=== PATIENT | male | born 2000 | race Caucasian/White ===

== ENCOUNTER 2023-05-30 08:58 | Emergency (ER) | payer OTHER, SELFPAY ==
[2023-05-30 09:01] VITALS: BP 132/75; PULSE 77; RESP 18; TEMP 36.9; O2SAT 98
[2023-05-30 09:50] VITALS: BP 147/84; PULSE 79; RESP 17; O2SAT 97
[2023-05-30 09:51] VITALS: BP 147/87; PULSE 91; RESP 16; TEMP 36.7; O2SAT 100
[2023-05-30 10:01] VITALS: BP 130/84; PULSE 73; RESP 13; O2SAT 99
--- NOTE | 2023-05-30 10:23 | ED.GENADULT ---
HPI - General Adult General Chief complaint: Recheck/Abnormal Lab/Rx Stated complaint: Seritonin sickness, vomitting Time Seen by Provider: 05/30/23 10:05 Source: patient Mode of arrival: ambulatory Limitations: no limitations History of Present Illness HPI narrative: This is a 22-year-old male who presents to the ED with chief complaint of nausea and vomiting x2 days. Reports that he recently restarted as Prozac and is concern for possible serotonin syndrome after looking up the symptoms online. Reports that he was prescribed Prozac few months ago in taking it without any issues, however after he moved back home recently he forgets to take them for couple weeks and restarted 2 days ago. Reports several episodes of diarrhea and a couple episodes of vomiting since yesterday. Denies abdominal pain, chest pain, shortness of breath, urinary problems or GI bleeding symptoms. Related Data Allergies Allergy/AdvReac Type Severity Reaction Status Date / Time amoxicillin Allergy Anaphylaxis Verified 05/30/23 08:59 Review of Systems Review of Systems: All systems as dictated in HPI Exam Narrative: GENERAL: Well-appearing, well-nourished, and in no acute distress. No diaphoresis. Drinking Sprite HEAD: Normocephalic, atraumatic. EYES: PERRLA and EOMI. ENT: Nares clear, no rhinorrhea or epistaxis. Mucous membranes moist. Oropharynx without tonsillar hypertrophy exudate or other lesions. NECK: Supple. No adenopathy or masses. CHEST: No respiratory distress. Clear to auscultation. No wheezes rales or rhonchi. HEART: Regular rate and rhythm. No murmur heard. Normal peripheral pulses. ABDOMEN: Soft, nontender, nondistended, normal active bowel sounds. MSK: Normal range of motion. No edema. SKIN: Warm, dry, no rash. NEURO: Alert and oriented x3. No focal deficits. PSYCH: Normal mood and affect. Pleasant and conversational Course Vital Signs Vital signs: Vital Signs Temperature 98.5 F 05/30/23 09:01 Pulse Rate 77 05/30/23 09:01 Respiratory Rate 18 05/30/23 09:01 Blood Pressure 132/75 05/30/23 09:01 Pulse Oximetry 98 05/30/23 09:01 Oxygen Delivery Room Air 05/30/23 09:01 Temperature 97.3 F L 05/30/23 10:33 Pulse Rate 76 05/30/23 11:16 Respiratory Rate 16 05/30/23 11:16 Blood Pressure 125/83 05/30/23 11:16 Pulse Oximetry 98 05/30/23 11:16 Oxygen Delivery Room Air 05/30/23 09:51 Medical Decision Making MDM Narrative Medical decision making narrative: This is a 22-year-old male who presents to the ED with chief complaint of nausea. He took his Prozac prescription and is seeking evaluation for possible serotonin syndrome. Vitals are normal. Exam is benign. He is drinking Sprite on the exam and clearly tolerating p.o. lab work is unremarkable. Symptoms consistent gastroenteritis. Pt will be discharged in stable condition. Return precautions given and supportive measures discussed. Pt is understanding and agreeable with plan for discharge and follow-up with PCP. Vital Signs Vital Signs: Vital Signs Temperature 98.5 F 05/30/23 09:01 Pulse Rate 77 05/30/23 09:01 Respiratory Rate 18 05/30/23 09:01 Blood Pressure 132/75 05/30/23 09:01 Pulse Oximetry 98 05/30/23 09:01 Oxygen Delivery Room Air 05/30/23 09:01 Temperature 97.3 F L 05/30/23 10:33 Pulse Rate 76 05/30/23 11:16 Respiratory Rate 16 05/30/23 11:16 Blood Pressure 125/83 05/30/23 11:16 Pulse Oximetry 98 05/30/23 11:16 Oxygen Delivery Room Air 05/30/23 09:51 Lab Data 05/30/23 10:32 05/30/23 10:32 Labs: Lab Results 05/30/23 05/30/23 05/30/23 Range/Units 09:49 10:26 10:32 WBC 10.2 H (4.5-10.0) K/mm3 RBC 5.21 (4.6-6.20) M/mm3 Hgb 15.6 (14.0-18.0) g/dL Hct 47.0 (42.0-52.0) % MCV 90.2 (80-100) fl MCH 29.9 (26-34) pg MCHC 33.2 (32-36) g/dl RDW 12.0 (11.5-14.5) % Plt Count 277 (150-375)
[2023-05-30 10:29] LABS: Influenza A QL RT-PCR Negative (Negative); Influenza B QL RT-PCR Negative (Negative); SARS-CoV-2 RNA PCR Negative (Negative)
[2023-05-30 10:33] VITALS: BP 135/80; PULSE 74; RESP 16; TEMP 36.3; O2SAT 100
[2023-05-30] MEDS: ONDANSETRON HCL ODT 4 MG TABLET PO (10:40)
[2023-05-30 10:42] LABS: Basophils Percent Auto 0.4 % (0.2-1.2); Eosinophils Absolute Auto 0.2 K/mm3 (0-0.3); Eosinophils Percent Auto 2.4 % (0-4.4); Hemoglobin 15.6 g/dL (14.0-18.0); Immature Granulocyte Absolute 0.04 K/mm3 (0.00-0.031); Immature Granulocyte Percent A 0.4 % (0-0.5); Lymphocytes Absolute Auto 0.81 K/mm3 (0.9-3.2); Lymphocytes Percent Auto 7.9 % (18.3-44.2); Mean Corpuscular HGB Conc 33.2 g/dl (32-36); Mean Corpuscular Hemoglobin 29.9 pg (26-34); Mean Corpuscular Volume 90.2 fl (80-100); Mean Platelet Volume 9.8 fl (7.4-10.4); Monocytes Absolute Auto 0.7 K/mm3 (0.1-0.6); Monocytes Percent Auto 6.4 % (2.6-8.5); Neutrophils Absolute Auto 8.4 K/mm3 (1.3-6.7); Neutrophils Percent Auto 82.5 % (45.5-73.1); Platelet Count Result 277 k/mm3 (150-375); Red Blood Count 5.21 M/mm3 (4.6-6.20); White Blood Count 10.2 K/mm3 (4.5-10.0)
[2023-05-30 10:46] LABS: Appearance Urine Turbid (Clear); Bacteria Urine None Seen /hpf; Bilirubin Urine Negative (Negative); Blood Urine Negative (Negative); Color Urine Yellow (Yellow); Glucose Urine UA Negative (Negative); Ketones Urine Negative (Negative); Leukocyte Esterase Ur Negative LEU/UL (Negative); Nitrate Urine Negative (Negative); Non Pathogenic Casts 0-2; Protein Urine Trace mg/dL (Negative); RBC Urine 0-2 /hpf (0-2); Specific Grav Ur 1.023 (1.001-1.035); Squamous Epithelial Cell Urine None seen /hpf (Few); WBC Urine 0-5 /hpf; pH Urine >=9.0 (5.0-9.0)
[2023-05-30 10:55] LABS: Add Urine Microscopic? YES
[2023-05-30 11:02] LABS: Alanine Aminotransferase 123 U/L (6-50); Albumin Level 4.7 g/dL (3.5-5.1); Alkaline Phosphatase 74 U/L (38-126); Anion Gap 8 mmol/L (8-16); Aspartate Amino Transferase 51 U/L (17-59); Blood Urea Nitrogen 10 mg/dL (9-20); Calcium 9.5 mg/dL (8.4-10.2); Carbon Dioxide 29 mmol/L (22-30); Chloride 102 mmol/L (98-107); Estimated CRCL calculation 104 ml/min; Estimated Glomerular Filt Rate > 60; Glucose 95 mg/dL (65-110); Potassium 4.2 mmol/L (3.4-5.0); Sodium 139 mmol/L (137-145)
[2023-05-30 11:16] VITALS: BP 125/83; PULSE 76; RESP 16; O2SAT 98
== END 2023-05-30 11:16 | disposition home or self-care (01) ==
PROVIDERS: Emergency Medicine; Emergency Provider Physician Assistant
DX: R11.2 Nausea with vomiting, unspecified (principal); Z20.822 Contact with and (suspected) exposure to COVID-19
CPT/HCPCS: 36415; 80053; 81001; 85025; 87636; 99283; A9270

== ENCOUNTER 2024-02-01 15:58 | Outpatient (CLI) | payer OTHER, SELFPAY ==
[2024-02-01 16:24] LABS: Hemoglobin 16.4 g/dL (14.0-18.0); Mean Corpuscular HGB Conc 34.2 g/dl (32-36); Mean Corpuscular Hemoglobin 30.6 pg (26-34); Mean Corpuscular Volume 89.6 fl (80-100); Mean Platelet Volume 10.1 fl (7.4-10.4); Platelet Count Result 340 k/mm3 (150-375); Red Blood Count 5.36 M/mm3 (4.6-6.20); Red Cell Distribution Width 11.7 % (11.5-14.5); White Blood Count 7.1 K/mm3 (4.5-10.0)
[2024-02-01 16:51] LABS: Erythrocyte Sedimentation Rate 1 mm/hr (0-20)
[2024-02-01 17:04] LABS: Alanine Aminotransferase 23 U/L (6-50); Alkaline Phosphatase 63 U/L (38-126); Anion Gap 11 mmol/L (4-12); Aspartate Amino Transferase 28 U/L (17-59); Bilirubin,Total 0.6 mg/dL (0.2-1.3); Blood Urea Nitrogen 11 mg/dL (9-20); CRP < 0.5 mg/dL (<1.0); Calcium 9.2 mg/dL (8.4-10.2); Carbon Dioxide 25 mmol/L (22-30); Chloride 97 mmol/L (98-107); Estimated Glomerular Filt Rate > 60; Glucose 91 mg/dL (65-110); Potassium 3.7 mmol/L (3.4-5.0); Sodium 133 mmol/L (137-145)
[2024-02-06 16:07] LABS: Immunoglobulin A 351 mg/dL (47-310); TTG IGA AB <1.0 U/mL
== END 2024-02-01 15:59 | disposition home or self-care (01) ==
LOC: ANHLAB 16:02
PROVIDERS: PCP Family Medicine Adolescent Medicine; Visit Provider Nurse Practitioner
DX: K52.9 Noninfective gastroenteritis and colitis, unspecified (principal); K21.9 Gastro-esophageal reflux disease without esophagitis; R63.4 Abnormal weight loss
CPT/HCPCS: 36415; 80053; 82784; 84443; 85027; 85652; 86140; 86364

== ENCOUNTER 2024-02-02 06:58 | Outpatient (CLI) | payer OTHER, SELFPAY ==
[2024-02-05 13:03] LABS: H pylori Ag Stool RESULT: Not Detected
[2024-02-09 18:43] LABS: Calprotectin, Stool 33 mcg/g
== END 2024-02-02 06:59 | disposition home or self-care (01) ==
LOC: ANHLAB 07:00
PROVIDERS: PCP Family Medicine Adolescent Medicine; Visit Provider Nurse Practitioner
DX: A04.8 Other specified bacterial intestinal infections (principal); K21.9 Gastro-esophageal reflux disease without esophagitis; K52.9 Noninfective gastroenteritis and colitis, unspecified
CPT/HCPCS: 83993; 87045; 87177; 87209; 87269; 87338; 87427; 87449

== ENCOUNTER 2024-03-15 03:02 | Day surgery (SDC) | payer OTHER, SELFPAY ==
[2024-03-08 15:14] VITALS: BMI 24.6
--- NOTE | 2024-03-15 12:42 | WPDANESEPPF ---
Anes - Initial Pre Proc Eval Procedure: Operation Date: 03/15/24 14:00 Proposed Procedures p Esophagogastroduodenoscopy & Colonoscopy - Mike Robbins MD Date/Time: 03/15/24 12:42 Surgeon: Mike Robbins MD Pre Op Diagnosis: abn weight loss, abd pain, gastroenteritis GERD Patient Data Age: 23 Gender: M Height: 1.78 m Weight: 78 kg Allergies Allergy/AdvReac Type Severity Reaction Status Date / Time Penicillins Allergy Intermediate Rash Verified 03/15/24 12:41 amoxicillin Allergy Anaphylaxis Verified 03/15/24 12:41 Home Medications Medication Instructions Recorded Confirmed Type fluoxetine 20 mg capsule (Prozac) 20 mg PO DAILY 06/22/23 03/15/24 History dicyclomine 10 mg capsule 10 mg PO QID #120 caps 02/01/24 03/15/24 Rx methylphenidate HCl 18 mg 18 mg PO QAM 02/01/24 03/15/24 History tablet,extended release 24 hr (Concerta) omeprazole 40 mg capsule,delayed 40 mg PO DAILY #30 caps 02/01/24 03/15/24 Rx release ondansetron HCl 4 mg tablet 4 mg PO Q8H PRN nausea and 02/01/24 03/15/24 Rx vomiting #30 tabs rifaximin 550 mg tablet (Xifaxan) 550 mg PO TID 14 days #42 tabs 02/01/24 03/15/24 Rx Patient hx anesthesia problems: none Family hx anesthesia problems: none Results Review: All pre-operative results and documents have been reviewed as part of the pre-operative evaluation. [facility] Past Medical History Medical History Tinnitus Surgical History Surgical History History of resection of small bowel Due to trauma Social History Social History Smoking status: Never smoker Substance use: current Substance use type: marijuana Other substance usage details: daily Living arrangements: with family Spiritual care concerns: No Anes - Eval Final PreProcedure Day of Procedure 03/15/24 12:42 Patient weight: normal Heart: regular rate and rhythm Lungs: clear to auscultation Airway: Mallampati scale class II Neurological: alert and oriented Last oral intake: >/= 8 hours ASA classification: III Emergent: no Anesthetic plan: proceed Anesthesia type and monitoring: general GIVS and standard monitoring Results Review: All pre-operative results and documents have been reviewed as part of the pre-operative evaluation. Informed Consent: The patient's anesthetic plan and its attendant risks and benefits were discussed with the patient/family/POA. Questions were solicited and answers provided to the satisfaction of the patient/family/POA.
[2024-03-15 12:43] VITALS: BP 124/85; PULSE 73; RESP 18; TEMP 36.2; O2SAT 97; BMI 23.8
[2024-03-15] MEDS: LACTATED RINGERS 1,000 ML 150 ML IV CONT (13:01)
--- NOTE | 2024-03-15 13:04 | PM.HPGS ---
History of Present Illness History of Present Illness Consent: Risks, benefits, and alternatives have been discussed and questions answered. Patient agrees to proceed with procedure. Chief complaint: abn weight loss, abd pain, gastroenteritis GERD Narrative: Shaheen Rosenberg is a 23 year old male here with months of diarrhea, normal calprotectin and negative serology for celiac. Also GERD better with omeprazole bid, never had scopes. Review of Systems Review of Systems: All systems reviewed & are unremarkable except as noted in HPI and below PMFSH Past Medical History Medical History Tinnitus Surgical History Surgical History History of resection of small bowel Due to trauma Social History Social History Smoking status: Never smoker Substance use: current Substance use type: marijuana Other substance usage details: daily Living arrangements: with family Spiritual care concerns: No Meds Home Medications and Allergies Home Medications Medication Instructions Recorded Confirmed Type fluoxetine 20 mg capsule (Prozac) 20 mg PO DAILY 06/22/23 03/15/24 History dicyclomine 10 mg capsule 10 mg PO QID #120 caps 02/01/24 03/15/24 Rx methylphenidate HCl 18 mg 18 mg PO QAM 02/01/24 03/15/24 History tablet,extended release 24 hr (Concerta) omeprazole 40 mg capsule,delayed 40 mg PO DAILY #30 caps 02/01/24 03/15/24 Rx release ondansetron HCl 4 mg tablet 4 mg PO Q8H PRN nausea and 02/01/24 03/15/24 Rx vomiting #30 tabs rifaximin 550 mg tablet (Xifaxan) 550 mg PO TID 14 days #42 tabs 02/01/24 03/15/24 Rx Allergies Allergy/AdvReac Type Severity Reaction Status Date / Time Penicillins Allergy Intermediate Rash Verified 03/15/24 12:41 amoxicillin Allergy Anaphylaxis Verified 03/15/24 12:41 Vital Signs Vital Signs - 24 hr 03/15/24 12:43 Temperature 97.1 F L Pulse Rate 73 Respiratory Rate 18 Blood Pressure 124/85 Pulse Oximetry 97 Oxygen Delivery Room Air Exam Const: General: comfortable and no acute distress HENMT: Face/Nose/Sinus: Normal nares present Eyes: General: appearance normal, both eyes and all related structures Neck: Neck: no JVD Resp: Auscultation: clear to auscultation bilaterally Cardio: Rate: regular rate Rhythm: regular rhythm GI: Inspection: non-distended GI Palp: Yes Soft to palpation Skin: General skin exam: normal color Neuro: General: gait normal Speech: normal speech Extrem: General: normal to inspection Psych: Mental Status: mental status grossly normal Assessment and Plan Assessment and plan (1) Chronic diarrhea: Code(s): K52.9 - Noninfective gastroenteritis and colitis, unspecified Status: Acute Assessment and Plan: colonoscopy (2) GERD (gastroesophageal reflux disease): Code(s): K21.9 - Gastro-esophageal reflux disease without esophagitis Status: Acute Assessment and Plan: egd (3) Vomiting: Code(s): R11.10 - Vomiting, unspecified Status: Acute
--- NOTE | 2024-03-15 13:17 | SUR.OPER ---
EGD [id number]. Colon start time 131
[2024-03-15 13:31] VITALS: BP 85/41; PULSE 79; RESP 18; O2SAT 97
[2024-03-15 13:41] VITALS: BP 89/44; PULSE 70; RESP 18; O2SAT 98
[2024-03-15 13:51] VITALS: BP 93/40; PULSE 56; RESP 19; O2SAT 98
[2024-03-15 14:01] VITALS: BP 98/49; PULSE 51; RESP 17; O2SAT 99
== END 2024-03-15 14:25 | disposition home or self-care (01) ==
PROVIDERS: PCP Family Medicine Adolescent Medicine; Referring Provider Nurse Practitioner; Visit Provider Internal Medicine Gastroenterology
PROC: 0DJ08ZZ Inspection of Upper Intestinal Tract, Via Natural or Artificial Opening Endoscopic (ICD-10-PCS; CPT 43235; principal; 2024-03-15 14:00)
DX: R19.7 Diarrhea, unspecified (principal); K64.8 Other hemorrhoids; K21.9 Gastro-esophageal reflux disease without esophagitis; R11.2 Nausea with vomiting, unspecified; F12.90 Cannabis use, unspecified, uncomplicated
CPT/HCPCS: 45380; 43239; 88305; J2003; J2704; J7120

== ENCOUNTER 2024-11-06 09:58 | Emergency (ER) | payer OTHER, SELFPAY ==
[2024-11-06 10:01] VITALS: BP 142/87; PULSE 71; RESP 16; TEMP 36.8; O2SAT 99
[2024-11-06 10:11] VITALS: BP 143/98; PULSE 74; RESP 20; O2SAT 96
[2024-11-06 10:17] LABS: Basophils Absolute Auto 0.1 K/mm3 (0.0-0.1); Basophils Percent Auto 0.6 % (0.2-1.2); Eosinophils Absolute Auto 0.2 K/mm3 (0-0.3); Eosinophils Percent Auto 1.3 % (0-4.4); Hematocrit 50.3 % (42.0-52.0); Hemoglobin 16.6 g/dL (14.0-18.0); Immature Granulocyte Absolute 0.06 K/mm3 (0.00-0.031); Immature Granulocyte Percent A 0.5 % (0-0.5); Lymphocytes Absolute Auto 1.12 K/mm3 (0.9-3.2); Lymphocytes Percent Auto 9.5 % (18.3-44.2); Mean Corpuscular Hemoglobin 29.4 pg (26-34); Mean Platelet Volume 9.7 fl (7.4-10.4); Monocytes Absolute Auto 0.7 K/mm3 (0.1-0.6); Monocytes Percent Auto 5.6 % (2.6-8.5); Neutrophils Absolute Auto 9.8 K/mm3 (1.3-6.7); Neutrophils Percent Auto 82.5 % (45.5-73.1); Platelet Count Result 336 k/mm3 (150-375); Red Blood Count 5.65 M/mm3 (4.6-6.20); White Blood Count 11.8 K/mm3 (4.5-10.0)
--- NOTE | 2024-11-06 10:21 | ED_ITS ---
HPI - General Adult General Chief complaint: Nausea/Vomiting/Diarrhea Stated complaint: nausea and vomiting today Time Seen by Provider: 11/06/24 10:02 Source: patient Mode of arrival: ambulatory Limitations: no limitations History of Present Illness HPI narrative: This is a 24-year-old male that presents to the emergency department for possible dehydration. Reports headache, nausea, lightheadedness. Reports he has been working outside in the heat a lot. Denies fever, vomiting, abdominal pain. Related Data Home Medications ?Medication ?Instructions ?Recorded ?Confirmed ?Last Taken ?Type fluoxetine 20 mg capsule (Prozac) 20 mg PO DAILY 06/22/23 04/22/24 03/14/24 History methylphenidate HCl 18 mg 18 mg PO QAM 02/01/24 04/22/24 03/14/24 History tablet,extended release 24 hr (Concerta) Allergies Allergy/AdvReac Type Severity Reaction Status Date / Time Penicillins Allergy Intermediate Rash Verified 11/06/24 10:05 amoxicillin Allergy Anaphylaxis Verified 11/06/24 10:05 Review of Systems 2 Review of Systems: All systems reviewed & are unremarkable except as noted in HPI and below PMFSH Past Medical History Medical History Tinnitus Surgical History Surgical History History of resection of small bowel Due to trauma Social History Social History Smoking status: Never smoker Substance use: current Substance use type: marijuana Other substance usage details: daily Living arrangements: with family Spiritual care concerns: No Exam 2 Narrative: GENERAL: Well-appearing, well-nourished, and in no acute distress. HEAD: Normocephalic, atraumatic. EYES: PERRLA and EOMI. ENT: Nares clear, no rhinorrhea or epistaxis. Mucous membranes moist. Oropharynx without tonsillar hypertrophy exudate or other lesions. NECK: Supple. No adenopathy or masses. CHEST: Clear to auscultation. No respiratory distress. No wheezes rales or rhonchi HEART: Regular rate and rhythm. No murmur heard. Normal peripheral pulses. ABDOMEN: Soft, nontender, nondistended, normal active bowel sounds. EXTREMITIES: Normal range of motion. No edema. SKIN: Warm, dry, no rash. NEURO: No focal deficits. Alert and oriented x3. CN II-XII grossly intact PSYCH: Normal mood and affect Course Course Emergency Course: Patient updated on his workup. Reports relief after IV fluids Reglan and Benadryl. Resting comfortably Vital Signs Vital signs: Vital Signs Temperature 98.2 F 11/06/24 10:01 Pulse Rate 71 11/06/24 10:01 Respiratory Rate 16 11/06/24 10:01 Blood Pressure 142/87 H 11/06/24 10:01 Pulse Oximetry 99 11/06/24 10:01 Oxygen Delivery Room Air 11/06/24 10:01 Temperature 97.9 F 11/06/24 10:32 Pulse Rate 75 11/06/24 11:42 Respiratory Rate 18 11/06/24 11:42 Blood Pressure 130/108 H 11/06/24 10:32 Pulse Oximetry 99 11/06/24 11:42 Oxygen Delivery Room Air 11/06/24 10:01 Medical Decision Making MDM Narrative Medical decision making narrative: Patient presents the emergency department for possible symptoms of dehydration. Reporting lightheadedness, headache, nausea. Reports he has been working outside a lot. He is afebrile and nontoxic appearing. His vitals are stable. CBC with mild leukocytosis to 11.8. Metabolic panel without concerning findings. Urine with evidence of dehydration. Patient updated on his workup. Reports relief after IV fluids Reglan and Benadryl. Resting comfortably. He is to follow up with his primary provider. He was given warnings to return to the ER Differential Diagnosis Differential Diagnosis: Dehydration, electrolyte derangement Vital Signs Vital Signs: Vital Signs Temperature 98.2 F 11/06/24 10:01 Pulse Rate 71 11/06/24 10:01 Respiratory Rate 16 11/06/24 10:01 Blood Pressure 142/87 H 11/06/24 10:01 Pulse Oximetry 99 11/06/24 10:01 Oxygen Delivery Room Air 11/06/24 10:01 Temperature 97.9 F 11/06/24 10:32 Pulse Rate 75 11/06/24 11:42 Respiratory Rate 18 11/06/24 11:42 Blood Pressure 130/108 H 11/06/24 10:32 Pulse Oximetry 99 11/06/24 11:42 Oxygen Delivery Room Air 11/06/24 10:01 Lab Data Lab results reviewed: Yes I reviewed the patient's lab results. 11/06/24 10:10 11/06/24 10:10 Labs: Lab Results 11/06/24 Range/Units 10:10 WBC 11.8 H (4.5-10.0) K/mm3 RBC 5.65 (4.6-6.20) M/mm3 Hgb 16.6 (14.0-18.0) g/dL Hct 50.3 (42.0-52.0) % MCV 89.0 (80-100) fl MCH 29.4 (26-34) pg MCHC 33.0 (32-36) g/dl RDW 12.0 (11.5-14.5) % Plt Count 336 (150-375) k/mm3 MPV 9.7 (7.4-10.4) fl Immature Gran % (Auto) 0.5 (0-0.5) % Neut % (Auto) 82.5 H (45.5-73.1) % Lymph % (Auto) 9.5 L (18.3-44.2) % Gregory % (Auto) 5.6 (2.6-8.5) % Eos % (Auto) 1.3 (0-4.4) % Baso % (Auto) 0.6 (0.2-1.2) % Lymph # (Auto) 1.12 (0.9-3.2) K/mm3 Gregory # (Auto) 0.7 H (0.1-0.6) K/mm3 Eos # (Auto) 0.2 (0-0.3) K/mm3 Baso # (Auto) 0.1 (0.0-0.1) K/mm3 Abs Immat Gran (auto) 0.06 H (0.00-0.031) K/mm3 Absolute Neuts (auto) 9.8 H (1.3-6.7) K/mm3 Absolute Nucleated RBC 0.000 (0.0-0.012) K/mm3 Nucleated RBC % 0.0 (0.0-0.2) % Sodium 139 (137-145) mmol/L Potassium 4.5 (3.4-5.0) mmol/L Chloride 101 (98-107) mmol/L Carbon Dioxide 28 (22-30) mmol/L Anion Gap 10 (4-12) mmol/L BUN 11 (9-20) mg/dL Creatinine 1.03 (0.7-1.3) mg/dL Estim Creat Clear Calc 99 ml/min Estimated GFR > 60 (59 - ) Glucose 132 H (65-110) mg/dL Calcium 9.8 (8.4-10.2) mg/dL Total Bilirubin 0.8 (0.2-1.3) mg/dL AST 54 (17-59) U/L ALT 89 H (6-50) U/L Alkaline Phosphatase 74 (38-126) U/L Total Creatine Kinase 114 (55-170) U/L Total Protein 9.1 H (6.3-8.2) g/dL Albumin 4.8 (3.5-5.1) g/dL Lipase 51 (23-300) U/L Urine Color Yellow (Yellow) Urine Appearance Turbid H (Clear) Urine pH >=9.0 H (5.0-9.0) Ur Specific [place] 1.020 (1.001-1.035) Urine Protein 1+ H (Negative) mg/dL Urine Glucose (UA) Negative (Negative) mg/dL Urine Ketones Trace H (Negative) mg/dL Ur Blood (Man) Negative (Negative) Urine Nitrate Negative (Negative) Urine Bilirubin Negative (Negative) Urine Urobilinogen 1.0 (<2.0) mg/dL Leukocyte Esterase Rfl Negative (Negative) SOHAN/UL Urine RBC 0-2 (0-2) /hpf Urine WBC 0-5 (0-3) /hpf Ur Squamous Epith Cells None seen (Few) /hpf Urine Bacteria None seen /hpf Urine Casts 0-2 Critical Care Time Critical Care Time Critical Care Time: No Discharge Plan Discharge Clinical Impression: Dehydration Patient Disposition: Home Condition: Improved Instructions: Dehydration (ED) Additional Instructions: Return to the ER if you experience fever, abdominal pain with nausea and vomiting, you are unable to keep down liquids or solids, or any other symptoms that are concerning to you Rest. Remain well hydrated Follow up with your primary care doctor Patient Language: Bulgarian Prescriptions: No Action methylphenidate HCl [Concerta] 18 mg tablet extended release 24hr 18 mg PO QAM fluoxetine [Prozac] 20 mg capsule 20 mg PO DAILY omeprazole 40 mg capsule,delayed release(DR/EC) 40 mg PO DAILY Qty: 90 3RF amitriptyline 10 mg tablet 20 mg PO QHS Qty: 60 3RF Follow-up/Referrals: Michael Sommer MD [Primary Care Provider] -
[2024-11-06] MEDS: SODIUM CHLORIDE 0.9% IV 1,000 ML 999 ML IV CONT ×2 (10:23→11:12)
[2024-11-06] MEDS: diphenhydrAMINE HCl INJ 50 MG/ML VIAL 25 MG IV PUSH (10:23)
[2024-11-06] MEDS: METOCLOPRAMIDE HCL INJ 10 MG/2 ML VIAL IV PUSH (10:24)
[2024-11-06 10:25] LABS: Add Urine Microscopic? YES; Appearance Urine Turbid (Clear); Bacteria Urine None Seen /hpf; Bilirubin Urine Negative (Negative); Blood Urine Negative (Negative); Color Urine Yellow (Yellow); Glucose Urine UA Negative (Negative); Ketones Urine Trace mg/dL (Negative); Leukocyte Esterase Ur Negative LEU/UL (Negative); Nitrate Urine Negative (Negative); Non Pathogenic Casts 0-2; Protein Urine 1+ mg/dL (Negative); RBC Urine 0-2 /hpf (0-2); Squamous Epithelial Cell Urine None Seen /hpf (Few); WBC Urine 0-5 /hpf (0-3); pH Urine >=9.0 (5.0-9.0)
[2024-11-06 10:28] LABS: Alanine Aminotransferase 89 U/L (6-50); Albumin Level 4.8 g/dL (3.5-5.1); Alkaline Phosphatase 74 U/L (38-126); Anion Gap 10 mmol/L (4-12); Aspartate Amino Transferase 54 U/L (17-59); Bilirubin,Total 0.8 mg/dL (0.2-1.3); Blood Urea Nitrogen 11 mg/dL (9-20); Calcium 9.8 mg/dL (8.4-10.2); Carbon Dioxide 28 mmol/L (22-30); Chloride 101 mmol/L (98-107); Estimated CRCL calculation 99 ml/min; Estimated Glomerular Filt Rate > 60; Glucose 132 mg/dL (65-110); Lipase 51 U/L (23-300); Potassium 4.5 mmol/L (3.4-5.0); Sodium 139 mmol/L (137-145); Total Protein 9.1 g/dL (6.3-8.2)
[2024-11-06 10:29] LABS: Creatine Kinase 114 U/L (55-170)
[2024-11-06 10:32] VITALS: BP 130/108; PULSE 79; RESP 14; TEMP 36.6; O2SAT 99
[2024-11-06 11:42] VITALS: PULSE 75; RESP 18; O2SAT 99
== END 2024-11-06 12:32 | disposition home or self-care (01) ==
PROVIDERS: Emergency Provider Physician Assistant; PCP Family Medicine Adolescent Medicine
DX: E86.0 Dehydration (principal); Z90.49 Acquired absence of other specified parts of digestive tract
CPT/HCPCS: 36415; 80053; 81001; 82550; 83690; 85025; 96361; 96374; 96375; 99284; J1200; J2765; J7030